=== PATIENT | female | born 1990 | race Caucasian/White ===

== ENCOUNTER 2018-01-13 02:45 | Inpatient (IN) | payer OTHER ==
[2018-01-13] MEDS ORDERED: NACL 0.9% 3 ML SYG IV (05:00)
[2018-01-13] MEDS ORDERED: DOCUSATE SODIUM 100 MG CAP PO (05:00)
[2018-01-13] MEDS ORDERED: BISACODYL (EC) 5 MG TAB PO (05:00)
[2018-01-13] MEDS ORDERED: ONDANSETRON 4 MG INJ IV (05:00)
[2018-01-13] MEDS: SOD CHLORIDE 0.9% 1,000 ML IV ×2 (05:32→14:48)
[2018-01-13 07:24] LABS: ADD MAN DIFF? NO
[2018-01-13 07:29] LABS: WHITE BLOOD COUNT 12.4 10^3/ul (4.8-10.8)
[2018-01-13 07:29] LABS: BASOPHILS % 0.2 % (0.0-2.0); EOSINOPHILS # 0.1 10^3/ul (0.0-0.5); EOSINOPHILS % 0.6 % (0.0-7.0); HEMATOCRIT 38.5 % (37.0-47.0); LYMPHOCYTES # 2.2 10^3/ul (0.8-2.9); LYMPHOCYTES % 17.9 % (15.0-51.0); MEAN CORPUSCULAR HEMOGLOBIN 25.7 pg (29.0-33.0); MEAN CORPUSCULAR HGB CONC 31.2 g/dl (32.0-37.0); MEAN CORPUSCULAR VOLUME 82.4 fl (82.0-101.0); MEAN PLATELET VOLUME 10.9 fl (7.4-10.4); MONOCYTE # 0.6 10^3/ul (0.3-0.9); MONOCYTES % 5.1 % (0.0-11.0); NEUTROPHIL # 9.3 10^3/ul (1.6-7.5); NEUTROPHILS % 75.1 % (39.0-77.0); PLATELET COUNT 221 10^3/UL (140-415); RED BLOOD COUNT 4.67 10^6/ul (4.20-5.40); RED CELL DISTRIBUTION WIDTH 14.6 % (11.5-14.5)
[2018-01-13] MEDS ORDERED: VANCOMYCIN IV PER PHARMACY XX (07:30)
[2018-01-13 07:46] LABS: ALANINE AMINOTRANSFERASE 44 IU/L (13-69); ALBUMIN 3.4 g/dl (3.3-4.9); ALBUMIN/GLOBULIN RATIO 1.09; ALKALINE PHOSPHATASE 81 IU/L (42-121); ANION GAP 12 (8-16); ASPARTATE AMINO TRANSFERASE 31 IU/L (15-46); BILIRUBIN,INDIRECT 0.3 mg/dl (0-1.1); BILIRUBIN,TOTAL 0.3 mg/dl (0.2-1.3); BLOOD UREA NITROGEN 15 mg/dl (7-20); CALCIUM 8.9 mg/dl (8.4-10.2); CARBON DIOXIDE 23 mmol/L (21-31); CHLORIDE 110 mmol/L (97-110); CREATININE 0.68 mg/dl (0.44-1.00); POTASSIUM 4.2 mmol/L (3.5-5.1); SODIUM 141 mmol/L (135-144); TOTAL PROTEIN 6.5 g/dl (6.1-8.1)
[2018-01-13 07:50] LABS: GLUCOSE 401 mg/dl (70-220)
[2018-01-13] MEDS: PIPER-TAZO 3.375 GM IV (PMX) 100 ML IVPB ×3 (08:53→17:28)
[2018-01-13 09:46] LABS: MAGNESIUM 1.7 mg/dl (1.7-2.5)
[2018-01-13] MEDS: VANCOMYCIN 1.5 GM in SOD CHLORIDE 0.9% 250 ML IVPB (11:02)
[2018-01-13] MEDS: HYDROCODONE/APAP (5/325) TAB PO ×2 (13:18→21:23)
[2018-01-13] MEDS ORDERED: GLUCAGON 1 MG INJ IM (15:00)
[2018-01-13] MEDS ORDERED: GLUCOSE GEL 15 GRAM TUBE BUCCAL (15:00)
[2018-01-13] MEDS ORDERED: GLUCOSE GEL 15 GRAM TUBE PO ×2 (15:00)
[2018-01-13] MEDS ORDERED: DEXTROSE 50% 50 ML SYRINGE IV ×2 (15:00)
[2018-01-13 15:05] LABS: HEMOGLOBIN A1C 11.8 % (0-5.9)
[2018-01-13] MEDS: INSULIN ASPART [NOVOLOG] 3 ML PEN SC ×3 (17:38→21:32)
[2018-01-13] MEDS: VANCOMYCIN 1 GM 250 ML IVPB (19:09)
[2018-01-13] MEDS: INSULIN GLARGINE [LANTus] (100 UNITS/ML) SYG SC (20:00)
[2018-01-13] MEDS: GABAPENTIN 300 MG CAP PO (21:22)
[2018-01-13] MEDS: predniSONE 10 MG TAB PO (21:23)
[2018-01-14] MEDS: ACCU-CHEK XX (02:00)
[2018-01-14] MEDS: VANCOMYCIN 1 GM 250 ML IVPB ×2 (02:26→10:10)
[2018-01-14] MEDS: PIPER-TAZO 3.375 GM IV (PMX) 100 ML IVPB ×4 (02:27→17:36)
[2018-01-14] MEDS: SOD CHLORIDE 0.9% 1,000 ML IV ×3 (02:27→20:48)
[2018-01-14] MEDS: INSULIN ASPART [NOVOLOG] 3 ML PEN SC ×8 (03:33→22:12)
[2018-01-14 07:15] LABS: WHITE BLOOD COUNT 11.9 10^3/ul (4.8-10.8)
[2018-01-14 07:15] LABS: ADD MAN DIFF? NO; BASOPHILS % 0.3 % (0.0-2.0); EOSINOPHILS % 0.3 % (0.0-7.0); HEMATOCRIT 37.3 % (37.0-47.0); HEMOGLOBIN 11.6 g/dl (12.0-16.0); LYMPHOCYTES # 1.9 10^3/ul (0.8-2.9); LYMPHOCYTES % 16.2 % (15.0-51.0); MEAN CORPUSCULAR HEMOGLOBIN 25.7 pg (29.0-33.0); MEAN CORPUSCULAR HGB CONC 31.1 g/dl (32.0-37.0); MEAN CORPUSCULAR VOLUME 82.5 fl (82.0-101.0); MEAN PLATELET VOLUME 10.8 fl (7.4-10.4); MONOCYTE # 0.5 10^3/ul (0.3-0.9); MONOCYTES % 3.8 % (0.0-11.0); NEUTROPHIL # 9.3 10^3/ul (1.6-7.5); NEUTROPHILS % 78.1 % (39.0-77.0); PLATELET COUNT 227 10^3/UL (140-415); RED BLOOD COUNT 4.52 10^6/ul (4.20-5.40); RED CELL DISTRIBUTION WIDTH 14.3 % (11.5-14.5)
[2018-01-14 07:36] LABS: MAGNESIUM 1.8 mg/dl (1.7-2.5)
[2018-01-14 07:39] LABS: PHOSPHORUS 4.7 mg/dl (2.5-4.9)
[2018-01-14 07:43] LABS: ALANINE AMINOTRANSFERASE 44 IU/L (13-69); ALBUMIN 3.6 g/dl (3.3-4.9); ALBUMIN/GLOBULIN RATIO 1.16; ALKALINE PHOSPHATASE 72 IU/L (42-121); ANION GAP 11 (8-16); ASPARTATE AMINO TRANSFERASE 29 IU/L (15-46); BILIRUBIN,INDIRECT 0.2 mg/dl (0-1.1); BILIRUBIN,TOTAL 0.2 mg/dl (0.2-1.3); BLOOD UREA NITROGEN 10 mg/dl (7-20); CALCIUM 9.3 mg/dl (8.4-10.2); CARBON DIOXIDE 25 mmol/L (21-31); CHLORIDE 109 mmol/L (97-110); CHOL/HDL RATIO 4.4 RATIO; CHOLESTEROL 146 mg/dl (100-200); CREATININE 0.54 mg/dl (0.44-1.00); GLUCOSE 297 mg/dl (70-220); HDL CHOLESTEROL 33 mg/dl (34-82); LDL CHOLESTEROL,CALCULATED 93 mg/dl; POTASSIUM 4.3 mmol/L (3.5-5.1); SODIUM 141 mmol/L (135-144); TOTAL PROTEIN 6.7 g/dl (6.1-8.1); TRIGLYCERIDES 100 mg/dl (0-149)
[2018-01-14 07:56] LABS: FREE T4 (FREE THYROXINE) 1.17 ng/dl (0.79-2.35)
[2018-01-14] MEDS: HYDROXYCHLOROQUINE 200 MG TAB PO (08:20)
[2018-01-14] MEDS: predniSONE 10 MG TAB PO ×2 (08:20→21:58)
[2018-01-14] MEDS: GABAPENTIN 300 MG CAP PO ×2 (08:20→21:58)
[2018-01-14 08:24] LABS: HEMOGLOBIN A1C 11.6 % (0-5.9)
[2018-01-14 08:38] LABS: C-REACTIVE PROTEIN 16.1 mg/dl (0.0-0.9)
[2018-01-14 08:50] LABS: ERYTHROCYTE SEDIMENTATION RATE 49 mm/Hr (0-20)
[2018-01-14 09:28] LABS: VANCOMYCIN,TROUGH 10.9 ug/ml (10.0-20.0)
[2018-01-14] MEDS ORDERED: VITAMIN A & D 5 GM OINT PACKET TOP ×2 (17:44→21:44)
[2018-01-14] MEDS: VANCOMYCIN 1.25 GM in SOD CHLORIDE 0.9% 250 ML IVPB (18:29)
[2018-01-14] MEDS: INSULIN GLARGINE [LANTus] (100 UNITS/ML) SYG SC (20:00)
[2018-01-14] MEDS: ACYCLOVIR 400 MG TAB PO (21:58)
[2018-01-14] MEDS: HYDROCODONE/APAP (5/325) TAB PO (22:00)
[2018-01-15] MEDS: PIPER-TAZO 3.375 GM IV (PMX) 100 ML IVPB ×2 (00:57→05:59)
[2018-01-15] MEDS: ACCU-CHEK XX (01:58)
[2018-01-15] MEDS: VANCOMYCIN 1.25 GM in SOD CHLORIDE 0.9% 250 ML IVPB ×3 (03:05→17:59)
[2018-01-15] MEDS: INSULIN ASPART [NOVOLOG] 3 ML PEN SC ×9 (03:10→20:35)
[2018-01-15] MEDS: SOD CHLORIDE 0.9% 1,000 ML IV ×2 (05:59→16:42)
[2018-01-15 07:25] LABS: ADD MAN DIFF? NO
[2018-01-15 07:30] LABS: WHITE BLOOD COUNT 12.4 10^3/ul (4.8-10.8)
[2018-01-15 07:30] LABS: BASOPHILS % 0.2 % (0.0-2.0); EOSINOPHILS % 0.2 % (0.0-7.0); HEMOGLOBIN 11.3 g/dl (12.0-16.0); LYMPHOCYTES # 2.1 10^3/ul (0.8-2.9); LYMPHOCYTES % 16.6 % (15.0-51.0); MEAN CORPUSCULAR HEMOGLOBIN 25.8 pg (29.0-33.0); MEAN CORPUSCULAR HGB CONC 31.4 g/dl (32.0-37.0); MEAN CORPUSCULAR VOLUME 82.2 fl (82.0-101.0); MEAN PLATELET VOLUME 11.1 fl (7.4-10.4); MONOCYTE # 0.5 10^3/ul (0.3-0.9); MONOCYTES % 3.8 % (0.0-11.0); NEUTROPHIL # 9.7 10^3/ul (1.6-7.5); NEUTROPHILS % 77.8 % (39.0-77.0); PLATELET COUNT 221 10^3/UL (140-415); RED BLOOD COUNT 4.38 10^6/ul (4.20-5.40); RED CELL DISTRIBUTION WIDTH 13.9 % (11.5-14.5)
[2018-01-15 07:47] LABS: MAGNESIUM 1.7 mg/dl (1.7-2.5)
[2018-01-15 07:48] LABS: ANION GAP 16 (8-16); BLOOD UREA NITROGEN 10 mg/dl (7-20); CALCIUM 8.9 mg/dl (8.4-10.2); CARBON DIOXIDE 23 mmol/L (21-31); CHLORIDE 105 mmol/L (97-110); GLUCOSE 305 mg/dl (70-220); SODIUM 140 mmol/L (135-144)
[2018-01-15 07:50] LABS: PHOSPHORUS 5.1 mg/dl (2.5-4.9)
[2018-01-15] MEDS: GABAPENTIN 300 MG CAP PO ×2 (08:13→20:24)
[2018-01-15] MEDS: HYDROXYCHLOROQUINE 200 MG TAB PO (08:13)
[2018-01-15] MEDS: predniSONE 10 MG TAB PO ×2 (08:14→20:24)
[2018-01-15] MEDS: ACYCLOVIR 400 MG TAB PO ×2 (08:14→20:24)
[2018-01-15] MEDS ORDERED: INSULIN ASPART [NOVOLOG] 3 ML PEN SC (11:50)
[2018-01-15] MEDS: NYSTATIN 30 GM POWDER BTL TOP ×2 (16:42→20:47)
[2018-01-15] MEDS: metFORMIN 500 MG TAB PO (17:12)
[2018-01-15] MEDS ORDERED: INSULIN GLARGINE [LANTus] (100 UNITS/ML) SYG SC (20:00)
[2018-01-15] MEDS: CEFEPIME 1GM/50 ML (PMX) 50 ML IVPB (20:25)
[2018-01-15] MEDS: INSULIN GLARGINE [LANTus] (100 UNITS/ML) SYG SC (20:35)
[2018-01-15] MEDS: HYDROCODONE/APAP (5/325) TAB PO (20:47)
[2018-01-16] MEDS: SOD CHLORIDE 0.9% 1,000 ML IV (00:53)
[2018-01-16 01:31] LABS: VANCOMYCIN,TROUGH 15.3 ug/ml (10.0-20.0)
[2018-01-16] MEDS: ACCU-CHEK XX (01:56)
[2018-01-16] MEDS: VANCOMYCIN 1.25 GM in SOD CHLORIDE 0.9% 250 ML IVPB ×3 (01:57→16:58)
[2018-01-16] MEDS: INSULIN ASPART [NOVOLOG] 3 ML PEN SC ×7 (07:54→21:00)
[2018-01-16 08:00] LABS: ADD MAN DIFF? NO
[2018-01-16 08:07] LABS: WHITE BLOOD COUNT 12.9 10^3/ul (4.8-10.8)
[2018-01-16 08:07] LABS: BASOPHIL # 0.1 10^3/ul (0.0-0.1); BASOPHILS % 0.4 % (0.0-2.0); EOSINOPHILS % 0.3 % (0.0-7.0); HEMATOCRIT 36.5 % (37.0-47.0); HEMOGLOBIN 11.7 g/dl (12.0-16.0); LYMPHOCYTES # 2.3 10^3/ul (0.8-2.9); LYMPHOCYTES % 18.1 % (15.0-51.0); MEAN CORPUSCULAR HEMOGLOBIN 26.5 pg (29.0-33.0); MEAN CORPUSCULAR HGB CONC 32.1 g/dl (32.0-37.0); MEAN CORPUSCULAR VOLUME 82.8 fl (82.0-101.0); MEAN PLATELET VOLUME 10.8 fl (7.4-10.4); MONOCYTE # 0.5 10^3/ul (0.3-0.9); MONOCYTES % 4.2 % (0.0-11.0); NEUTROPHIL # 9.8 10^3/ul (1.6-7.5); NEUTROPHILS % 75.7 % (39.0-77.0); PLATELET COUNT 251 10^3/UL (140-415); RED BLOOD COUNT 4.41 10^6/ul (4.20-5.40); RED CELL DISTRIBUTION WIDTH 14.1 % (11.5-14.5)
[2018-01-16 08:36] LABS: MAGNESIUM 1.7 mg/dl (1.7-2.5)
[2018-01-16] MEDS: metFORMIN 500 MG TAB PO ×2 (08:40→16:57)
[2018-01-16] MEDS: GABAPENTIN 300 MG CAP PO ×2 (08:41→21:22)
[2018-01-16] MEDS: HYDROXYCHLOROQUINE 200 MG TAB PO (08:41)
[2018-01-16] MEDS: predniSONE 10 MG TAB PO ×2 (08:42→21:22)
[2018-01-16] MEDS: CEFEPIME 1GM/50 ML (PMX) 50 ML IVPB ×2 (08:42→21:22)
[2018-01-16] MEDS: ACYCLOVIR 400 MG TAB PO ×2 (08:42→21:23)
[2018-01-16] MEDS: NYSTATIN 30 GM POWDER BTL TOP ×2 (08:43→21:23)
[2018-01-16 08:48] LABS: PHOSPHORUS 5.1 mg/dl (2.5-4.9)
[2018-01-16] MEDS: INSULIN GLARGINE [LANTus] (100 UNITS/ML) SYG SC ×2 (09:00→21:27)
[2018-01-16 12:08] LABS: ANION GAP 12 (8-16); BLOOD UREA NITROGEN 10 mg/dl (7-20); CALCIUM 8.8 mg/dl (8.4-10.2); CARBON DIOXIDE 23 mmol/L (21-31); CHLORIDE 109 mmol/L (97-110); CREATININE 0.69 mg/dl (0.44-1.00); GLUCOSE 208 mg/dl (70-220); POTASSIUM 4.4 mmol/L (3.5-5.1); SODIUM 140 mmol/L (135-144)
[2018-01-16] MEDS: LIDOCAINE 1% (MPF) 5 ML VIAL SC (14:40)
[2018-01-16] MEDS: SOD CHLORIDE 0.9% 100 ML (14:55)
[2018-01-16 15:36] LABS: INR 0.95; PROTIME 12.8 Sec (11.9-14.9)
[2018-01-16 15:37] LABS: PARTIAL THROMBOPLASTIN TIME 29.2 Sec (25.0-35.0)
[2018-01-16] MEDS: HYDROCODONE/APAP (5/325) TAB PO (20:00)
[2018-01-17] MEDS: ACCU-CHEK XX (02:00)
[2018-01-17] MEDS: VANCOMYCIN 1.25 GM in SOD CHLORIDE 0.9% 250 ML IVPB ×3 (02:24→17:16)
[2018-01-17 06:20] LABS: ADD MAN DIFF? NO
[2018-01-17 06:30] LABS: BASOPHIL # 0.1 10^3/ul (0.0-0.1); BASOPHILS % 0.4 % (0.0-2.0); EOSINOPHILS % 0.1 % (0.0-7.0); HEMATOCRIT 38.9 % (37.0-47.0); HEMOGLOBIN 12.2 g/dl (12.0-16.0); LYMPHOCYTES # 1.9 10^3/ul (0.8-2.9); MEAN CORPUSCULAR HEMOGLOBIN 26.2 pg (29.0-33.0); MEAN CORPUSCULAR HGB CONC 31.4 g/dl (32.0-37.0); MEAN CORPUSCULAR VOLUME 83.7 fl (82.0-101.0); MEAN PLATELET VOLUME 10.4 fl (7.4-10.4); MONOCYTE # 0.6 10^3/ul (0.3-0.9); MONOCYTES % 4.1 % (0.0-11.0); NEUTROPHIL # 10.9 10^3/ul (1.6-7.5); NEUTROPHILS % 79.9 % (39.0-77.0); PLATELET COUNT 245 10^3/UL (140-415); RED BLOOD COUNT 4.65 10^6/ul (4.20-5.40); RED CELL DISTRIBUTION WIDTH 14.2 % (11.5-14.5)
[2018-01-17 06:30] LABS: WHITE BLOOD COUNT 13.6 10^3/ul (4.8-10.8)
[2018-01-17 06:55] LABS: PHOSPHORUS 5.4 mg/dl (2.5-4.9)
[2018-01-17 06:56] LABS: MAGNESIUM 1.8 mg/dl (1.7-2.5)
[2018-01-17] MEDS: predniSONE 10 MG TAB PO ×2 (08:34→20:58)
[2018-01-17] MEDS: CEFEPIME 1GM/50 ML (PMX) 50 ML IVPB ×2 (08:34→20:58)
[2018-01-17] MEDS: ACYCLOVIR 400 MG TAB PO ×2 (08:34→20:58)
[2018-01-17] MEDS: HYDROXYCHLOROQUINE 200 MG TAB PO (08:34)
[2018-01-17] MEDS: metFORMIN 500 MG TAB PO ×2 (08:34→17:16)
[2018-01-17] MEDS: GABAPENTIN 300 MG CAP PO ×2 (08:35→20:58)
[2018-01-17] MEDS: INSULIN ASPART [NOVOLOG] 3 ML PEN SC ×7 (08:36→21:00)
[2018-01-17] MEDS: INSULIN GLARGINE [LANTus] (100 UNITS/ML) SYG SC ×2 (08:39→21:00)
[2018-01-17] MEDS: NYSTATIN 30 GM POWDER BTL TOP ×2 (08:41→21:04)
[2018-01-17] MEDS: ACETAMINOPHEN 325 MG TAB PO (15:03)
[2018-01-18] MEDS: ACCU-CHEK XX (02:00)
[2018-01-18] MEDS: VANCOMYCIN 1.25 GM in SOD CHLORIDE 0.9% 250 ML IVPB ×3 (02:02→17:37)
[2018-01-18 05:38] LABS: ADD MAN DIFF? NO
[2018-01-18 05:47] LABS: BASOPHIL # 0.1 10^3/ul (0.0-0.1); BASOPHILS % 0.3 % (0.0-2.0); EOSINOPHILS # 0.1 10^3/ul (0.0-0.5); EOSINOPHILS % 0.3 % (0.0-7.0); HEMATOCRIT 38.6 % (37.0-47.0); HEMOGLOBIN 12.2 g/dl (12.0-16.0); LYMPHOCYTES # 2.2 10^3/ul (0.8-2.9); LYMPHOCYTES % 12.9 % (15.0-51.0); MEAN CORPUSCULAR HEMOGLOBIN 26.1 pg (29.0-33.0); MEAN CORPUSCULAR HGB CONC 31.6 g/dl (32.0-37.0); MEAN CORPUSCULAR VOLUME 82.5 fl (82.0-101.0); MEAN PLATELET VOLUME 10.6 fl (7.4-10.4); MONOCYTE # 0.7 10^3/ul (0.3-0.9); MONOCYTES % 4.1 % (0.0-11.0); NEUTROPHIL # 13.8 10^3/ul (1.6-7.5); NEUTROPHILS % 80.9 % (39.0-77.0); PLATELET COUNT 234 10^3/UL (140-415); RED BLOOD COUNT 4.68 10^6/ul (4.20-5.40); RED CELL DISTRIBUTION WIDTH 14.1 % (11.5-14.5)
[2018-01-18 06:02] LABS: ANION GAP 13 (8-16); BLOOD UREA NITROGEN 12 mg/dl (7-20); CALCIUM 9.3 mg/dl (8.4-10.2); CARBON DIOXIDE 25 mmol/L (21-31); CHLORIDE 108 mmol/L (97-110); CREATININE 0.47 mg/dl (0.44-1.00); GLUCOSE 160 mg/dl (70-220); MAGNESIUM 1.7 mg/dl (1.7-2.5); POTASSIUM 4.2 mmol/L (3.5-5.1); SODIUM 142 mmol/L (135-144)
[2018-01-18] MEDS: INSULIN ASPART [NOVOLOG] 3 ML PEN SC ×6 (08:15→17:45)
[2018-01-18] MEDS: GABAPENTIN 300 MG CAP PO (08:34)
[2018-01-18] MEDS: HYDROXYCHLOROQUINE 200 MG TAB PO (08:35)
[2018-01-18] MEDS: ACYCLOVIR 400 MG TAB PO (08:35)
[2018-01-18] MEDS: metFORMIN 500 MG TAB PO ×2 (08:35→17:32)
[2018-01-18] MEDS: predniSONE 10 MG TAB PO (08:35)
[2018-01-18] MEDS: CEFEPIME 1GM/50 ML (PMX) 50 ML IVPB (08:35)
[2018-01-18] MEDS: INSULIN GLARGINE [LANTus] (100 UNITS/ML) SYG SC (08:39)
[2018-01-18] MEDS: NYSTATIN 30 GM POWDER BTL TOP (08:46)
[2018-01-18] MEDS: HYDROCODONE/APAP (5/325) TAB PO (17:32)
== END 2018-01-18 20:55 | disposition home health service (06) | DRG 872 ==
LOC: TEL 02:45 → MS2 01-16 20:35
PROVIDERS: Family Medicine
PROC: 02HV33Z Insertion of Infusion Device into Superior Vena Cava, Percutaneous Approach (ICD-10-PCS; principal; 2018-01-16)
DX: A41.9 Sepsis, unspecified organism (principal); L03.114 Cellulitis of left upper limb; M00.9 Pyogenic arthritis, unspecified; B00.2 Herpesviral gingivostomatitis and pharyngotonsillitis; B96.89 Other specified bacterial agents as the cause of diseases classified elsewhere; M06.9 Rheumatoid arthritis, unspecified; E11.8 Type 2 diabetes mellitus with unspecified complications
CPT/HCPCS: 36569; 71045; 76937; 80048; 80053; 80061; 80202; 82962; 83036; 83735; 84100; 84439; 84443; 84703; 85025; 85610; 85651; 85730; 86140; 87040

== ENCOUNTER 2018-01-23 13:39 | Day surgery (SDC) | payer OTHER ==
[2018-01-23] MEDS ORDERED: FENTAnyl 50 MCG/ML VIAL (16:56)
[2018-01-23] MEDS ORDERED: KETOROLAC 30 MG INJ (16:56)
[2018-01-23] MEDS ORDERED: ONDANSETRON 4 MG INJ (16:57)
[2018-01-23] MEDS: LIDOCAINE 1%/EPI 30 ML INJ (17:07)
[2018-01-23] MEDS: BUPIVACAINE 0.5% (SDV) 30 ML INJ (17:07)
== END 2018-01-23 18:31 | disposition home or self-care (01) ==
LOC: SDS 13:39
DX: R59.0 Localized enlarged lymph nodes (principal); E11.9 Type 2 diabetes mellitus without complications
CPT/HCPCS: 38500; 82962; 88307

== ENCOUNTER 2018-02-20 14:07 | Emergency (ER) | payer OTHER | END 2018-02-20 16:15 | disposition home or self-care (01) | LOC: E/R 14:07 | DX: Z45.2 Encounter for adjustment and management of vascular access device (principal); J45.909 Unspecified asthma, uncomplicated; Z79.4 Long term (current) use of insulin; Z79.84 Long term (current) use of oral hypoglycemic drugs | CPT/HCPCS: 99282; Z7502 ==